=== PATIENT | male | born 1950 | race Caucasian/White ===

== ENCOUNTER 2017-04-18 07:08 | Day surgery (SDC) | payer OTHER ==
[~2017-04-18] VITALS: Ht 172.7 cm; Wt 164.0 kg
[~2017-04-18 07:08] MED LIST: ASPIRIN81 M2 PO; CRESTOR40 MG PO; DEXILANT60 MG PO; EFFEXOR75 MG PO; FUROSEMIDE80 MG PO; GABAPENTIN600 MG PO; LEVEMIR FL100 UNIT/1 SC; LYRICA150 MG PO; METHOCARBAMOL750 MG PO; MULTIVITAMIN1 EAC2 PO; NAPROXEN500 MG PO; NOVOLOG PE100 UNITS/ SC; OXYCODONE HCL5 M1 PO; QUINAPRIL HCL40 MG PO
[2017-04-18 08:32] LABS: HEMATOCRIT 52.5 % (38.0-50.0); MCH 30.5 PG (29.0-34.0); MCV 92.4 FL (86-99); MEAN PLAT.VOLUME 11.4 uM^3 (9.0-12.4); PLATELET COUNT 162 K/uL (156-360); RBC DIS.WIDTH-CV 14.6 % (11.8-14.6); RBC DIS.WIDTH-SD 48.9 % (39-53); RED BLOOD COUNT 5.68 M/uL (4.00-5.50); WHITE BLOOD COUNT 7.8 K/uL (4.1-10.2)
[2017-04-18 08:41] LABS: POINT-OF-CARE METER ID UU13113696
[2017-04-18 09:53] LABS: CHLORIDE 103 MEQ/L (99-109); GFR ESTIMATE (CALCULATED) > 59 mL/min/; GLUCOSE 184 mg/dL (70-99); POTASSIUM 4.3 MEQ/L (3.7-5.4); SODIUM 138 MEQ/L (136-147); UREA NITROGEN (BUN) 9 mg/dL (9-23)
== END 2017-04-18 14:14 | disposition home or self-care (01) ==
LOC: CATH 07:08
PROVIDERS: Internal Medicine Cardiovascular Disease
DX: I25.10 Atherosclerotic heart disease of native coronary artery without angina pectoris (principal); I10 Essential (primary) hypertension; E11.40 Type 2 diabetes mellitus with diabetic neuropathy, unspecified; J44.9 Chronic obstructive pulmonary disease, unspecified; E78.5 Hyperlipidemia, unspecified; K21.9 Gastro-esophageal reflux disease without esophagitis; G47.33 Obstructive sleep apnea (adult) (pediatric); I45.10 Unspecified right bundle-branch block; I44.0 Atrioventricular block, first degree; E66.01 Morbid (severe) obesity due to excess calories; Z68.43 Body mass index [BMI] 50.0-59.9, adult; Z79.4 Long term (current) use of insulin; Z79.82 Long term (current) use of aspirin; Z82.49 Family history of ischemic heart disease and other diseases of the circulatory system; F17.210 Nicotine dependence, cigarettes, uncomplicated
CPT/HCPCS: 80048; 82948; 85027; 93005; C1769; C1887; J1644; J2250; J3010

== ENCOUNTER 2017-04-25 11:45 | Day surgery (SDC) | payer OTHER ==
[~2017-04-25] VITALS: Ht 172.7 cm; Wt 158.2 kg
[2017-04-25 12:46] LABS: POINT-OF-CARE METER ID UU13113696; POINT-OF-CARE USER ID HMLCJM07
[2017-04-25 17:24] LABS: POINT-OF-CARE METER ID UU13113819; POINT-OF-CARE USER ID 515036437
[2017-04-25 19:30] VITALS: BP 160/80
[2017-04-25 20:47] LABS: POINT-OF-CARE METER ID UU14314088
[2017-04-26 00:05] VITALS: BP 140/78
[2017-04-26 03:39] VITALS: BP 144/80
[2017-04-26 05:34] LABS: BASOPHIL COUNT 0.1 K/uL (0-0.1); EOSINOPHIL (%) 1.5 % (0-5); EOSINOPHIL COUNT 0.1 K/uL (0-0.3); HEMATOCRIT 52.9 % (38.0-50.0); IMMATURE GRANULOCYTE (%) 0.6 % (0.0-0.7); IMMATURE GRANULOCYTE COUNT 0.1 K/uL; INSTRUMENT ABS NEUTROPHIL CT 5.2 K/uL; LYMPHOCYTE COUNT 1.8 K/uL (1.0-2.8); MCH 29.7 PG (29.0-34.0); MCHC 31.9 G/DL (30.0-36.0); MEAN PLAT.VOLUME 11.9 uM^3 (9.0-12.4); MONOCYTE (%) 8.2 % (3-12); MONOCYTE COUNT 0.7 K/uL (0-0.8); NEUTROPHIL COUNT 5.2 K/uL (1.8-6.4); PLATELET COUNT 170 K/uL (156-360); RBC DIS.WIDTH-CV 14.6 % (11.8-14.6); RBC DIS.WIDTH-SD 50.1 % (39-53); RED BLOOD COUNT 5.69 M/uL (4.00-5.50); WHITE BLOOD COUNT 7.9 K/uL (4.1-10.2)
[2017-04-26 06:00] LABS: ANION GAP 8 MEQ/L (2-14); CHLORIDE 103 MEQ/L (99-109); GFR ESTIMATE (CALCULATED) > 59 mL/min/; GLUCOSE 191 mg/dL (70-99); POTASSIUM 3.7 MEQ/L (3.7-5.4); SAMPLE HEMOLYSIS CHECK 0; SAMPLE ICTERIC CHECK 0; SAMPLE LIPEMIA CHECK 0; SODIUM 138 MEQ/L (136-147); UREA NITROGEN (BUN) 14 mg/dL (9-23)
[2017-04-26] MEDS ORDERED: LISINOPRIL10 MG PO (07:27)
[2017-04-26] MEDS ORDERED: CLOPIDOGREL75 MG PO (07:27)
[2017-04-26 07:56] VITALS: BP 147/73
[2017-04-26 08:12] LABS: POINT-OF-CARE METER ID UU14314088; POINT-OF-CARE USER ID ENVKC36
== END 2017-04-26 10:49 | disposition home or self-care (01) ==
LOC: CATH 11:45 → ENRESERV 14:35 → 2SOUTH 16:21 → 4EAST 16:21 → 2SOUTH 16:21 → 4EAST 19:43
PROVIDERS: Internal Medicine Cardiovascular Disease
PROC: 027135Z Dilation of Coronary Artery, Two Arteries with Two Drug-eluting Intraluminal Devices, Percutaneous Approach (ICD-10-PCS; principal; 2017-04-25)
DX: I25.10 Atherosclerotic heart disease of native coronary artery without angina pectoris (principal); I25.82 Chronic total occlusion of coronary artery; I10 Essential (primary) hypertension; E11.9 Type 2 diabetes mellitus without complications; E66.01 Morbid (severe) obesity due to excess calories; Z68.43 Body mass index [BMI] 50.0-59.9, adult; E78.5 Hyperlipidemia, unspecified; J44.9 Chronic obstructive pulmonary disease, unspecified; F17.200 Nicotine dependence, unspecified, uncomplicated
CPT/HCPCS: 80048; 82948; 85025; 85347; 93005; C1725; C1769; C1874; C1887; G0378; J0583; J1644; J1815; J2250; J3010